=== PATIENT | female | born 1975 | race Caucasian/White ===

== ENCOUNTER 2017-10-27 15:00 | Emergency (ER) | payer BC ==
[2017-10-27 15:58] VITALS: BP 126/86
--- NOTE | 2017-10-27 17:16 | UC ---
Throat Pain/Nasal [place] HPI - HPI Summary HPI Summary: Pt presents to with head cold approx 10 days ago. Pt now with max sinus pressure, congestion. + PND + cough with mild production no wheeze. Pt reports facial pressure. no nausea, vomiting. No rash Pt has taken Afrin x 2 days with little improvement. Pt had pna last year and does not want to develop again - doesn't feel same "yet". Pt with childrend at home with head colds but they improved pt's medications reviewed this visit - History of Current Complaint Chief Complaint: UCGeneralIllness Stated Complaint: SINUSES Time Seen by Provider: 10/27/17 17:08 Hx Obtained From: Patient Hx Last Menstrual Period: 10/16/17 ?: No Onset/Duration: Gradual Onset Pain Intensity: 6 Cough: Nonproductive - Allergies/Home Medications Allergies/Adverse Reactions: Allergies Allergy/AdvReac Type Severity Reaction Status Date / Time No Known Allergies Allergy Verified 10/27/17 15:57 Home Medications: Home Medications Ferrous Sulfate TAB* 325 mg PO DAILY 10/27/17 [History Confirmed 10/27/17] PMH/Surg Hx/FS Hx/Imm Hx Previously Healthy: Yes - Surgical History Surgical History: Yes Surgery Procedure, Year, and Place: gallbladder - Family History Known Family History: Negative: Hypertension, Respiratory Disease - Social History Occupation: Works From/At Home Lives: With Family Alcohol Use: None Substance Use Type: None Smoking Status (MU): Never Smoked Tobacco Review of Systems Constitutional: Fever ENT: Nasal Discharge, Sinus Congestion, Sinus Pain/Tenderness Respiratory: Cough Cardiovascular: Negative Neurological: Headache - frontal All Other Systems Reviewed And Are Negative: Yes Physical Exam Triage Information Reviewed: Yes Appearance: Well-Nourished, Other: - congested, coarse cough Vital Signs: Initial Vital Signs Temp 98.4 F 10/27/17 15:52 Pulse 89 10/27/17 15:52 Resp 17 10/27/17 15:52 BP 126/86 10/27/17 15:52 Pulse Ox 100 10/27/17 15:52 Vital Signs Reviewed: Yes Eye Exam: Normal Eyes: Positive: Conjunctiva Clear ENT: Positive: Other - fluid b/l TM turbinates inflammed and boggy + TTP max sinus R>L frontal congestion R>L + PND uvula midline no exudate, no erythema Neck exam: Normal Neck: Positive: Supple, Nontender, No Lymphadenopathy Respiratory Exam: Normal Respiratory: Positive: No respiratory distress, No accessory muscle use, Other: - + coarse cough, scattered wheeze, rhonci right upper lobe Cardiovascular Exam: Normal Cardiovascular: Positive: RRR, No Murmur Abdominal Exam: Normal Abdomen Description: Positive: Nontender Bowel Sounds: Positive: Present Musculoskeletal Exam: Normal Neurological Exam: Normal Neurological: Positive: Alert Psychological Exam: Normal Skin Exam: Normal Re-Evaluation - Re-Evaluation First Eval Change: Improved - Pt improved following neb Will Rx abx mdi flonase motrin/ apap secretion precaution return precaution Throat Pain/Nasal Course/Dx - Course Course Of Treatment: cough, congestion and sinus pressure, pain. pt with sinusitis and difuse lung wheeeze. will give neb. reassess. if persistent rhonchi - cxr - Differential Dx/Diagnosis Provider Diagnoses: sinusitis, acute bronchitis Discharge - Discharge Plan Condition: Stable Disposition: HOME Prescriptions: Albuterol HFA INHALER* [Ventolin HFA Inhaler*] 2 puff INH Q4H PRN #1 mdi PRN Reason: wheeze Amoxicillin/Clavulanate TAB* [Augmentin TAB 875*] 875 mg PO BID #20 tab Fluticasone NASAL SPRAY 50MCG* [Flonase NASAL SPRAY 50MCG*] 2 spray BOTH NARES DAILY #1 btl Patient Education Materials: Acute Bronchitis (ED), Rhinosinusitis (ED) Referrals: Non Staff,Doctor [Primary Care Provider] - Additional Instructions: - stay well hydrated. Drink plenty of non-alcoholic,non-caffinated beverage - take antibiotics as prescribed until gone - use nasal spray as instructed - These infections are spread by secretions - do NOT share eating or drinking utensils - clean items you share with other people such as cell phones, computer mouse, TV remote, computer tablets, etc. After you have taken antibiotics for 3 days, change your toothbrush and your pillowcase. - use your inhaler 2 puffs every 4hours today and tomorrow, then every 4 hours as needed - get plenty of restful sleep - humidify the air in the room where you sleep - boil water, run a hot steam shower, vaporizer, cups of water by heat register - okay to take over the counter decongestant and cough medication - contact your doctor, return here or go to the emergency department with questions or concerns
[2017-10-27] MEDS ORDERED: Albuterol/Ipratropium NEB.SOL* Albuterol 2.5 MG/Ipratropium 0.5 MG 3 ML INH ONE (17:24)
== END 2017-10-27 18:10 | disposition home or self-care (01) ==
LOC: UCCORT 15:00
DX: J32.9 Chronic sinusitis, unspecified (principal); J20.9 Acute bronchitis, unspecified
CPT/HCPCS: 99212; A9270-GY; G0463